=== PATIENT | male | born 1960 | race Caucasian/White ===

== ENCOUNTER 2021-03-06 17:15 | Inpatient (IN) | payer OTHER ==
[2021-03-06] MEDS ORDERED: MENTHOL/PHENOL 1 EACH UD MM PRN (19:21)
[2021-03-06] MEDS ORDERED: MAGNESIUM CITRATE 300 ML BOTTLE PO PRN (19:21)
[2021-03-06] MEDS ORDERED: MAG HYDROX/AL HYDROX/SIMETH 30 ML UNIT-DOSE CUP PO PRN (19:21)
[2021-03-06] MEDS ORDERED: BISMUTH SUBSALICYLATE 524 MG/30 ML PO PRN (19:21)
[2021-03-06] MEDS ORDERED: ONDANSETRON *ODT* 4 MG TABLET SL PRN (19:21)
[2021-03-06] MEDS ORDERED: ACETAMINOPHEN 325 MG TABLET (FP) PO PRN ×2 (19:21)
[2021-03-06] MEDS ORDERED: MAGNESIUM HYDROX 2400MG/30ML ORAL SUSPENSION 30 ML CUP PO PRN (19:21)
[2021-03-06] MEDS ORDERED: IBUPROFEN 400 MG TABLET (FP) PO PRN (19:21)
[2021-03-06] MEDS ORDERED: cloNIDine HCL 0.1 MG TABLET PO PRN (19:21)
[2021-03-06] MEDS ORDERED: methaDONE HCL 10 MG TABLET (FOR DETOX USE ONLY) PO ONE (19:21)
[2021-03-06 20:13] VITALS: BMI 27.9
[2021-03-06] MEDS: THIAMINE HCL 100 MG TABLET (FP) PO SCH (22:14)
[2021-03-06] MEDS: QUEtiapine FUMARATE 50 MG TABLET PO PRN (22:14)
[2021-03-06] MEDS: hydrOXYzine PAMOATE 25 MG CAPSULE (FP) PO SCH (22:15)
[2021-03-06] MEDS: MELATONIN 5 MG TABLETS PO SCH (22:15)
[2021-03-07] MEDS: hydrOXYzine PAMOATE 25 MG CAPSULE (FP) PO SCH ×5 (05:23→22:08)
[2021-03-07] MEDS ORDERED: methaDONE HCL 10 MG TABLET (FOR DETOX USE ONLY) ONE (09:14)
[2021-03-07] MEDS: PRENATAL VITAMINS W/ FOLIC ACID TABLET (FP) PO SCH (10:12)
[2021-03-07] MEDS: PANTOPRAZOLE 40 MG TABLET PO SCH (10:12)
[2021-03-07] MEDS: TAMSULOSIN HCL 0.4 MG CAP PO SCH (10:13)
[2021-03-07] MEDS: NICOTINE 10 MG CARTRIDGE (INHALER) IH PRN ×2 (10:14→17:53)
[2021-03-07 12:14] LABS: HEMATOCRIT 39.9 % (35.4-49); HEMOGLOBIN 13.2 GM/dL (11.7-16.9); MCH 29.5 pg (25.7-33.7); MEAN CELL VOLUME 89.6 fl (80-96); MEAN PLT VOLUME 7.7 fl (7.5-11.1); PLATELET COUNT 348 10^3/uL (134-434); RBC 4.46 M/mm3 (4.00-5.60); RDW 13.6 % (11.9-15.9); WHITE BLOOD COUNT 9.5 K/mm3 (4.0-10.0)
[2021-03-07 12:18] LABS: ALBUMIN 3.1 g/dl (3.4-5.0)
[2021-03-07 12:21] LABS: CREATININE 1.1 mg/dL (0.55-1.3)
[2021-03-07 12:23] LABS: BILIRUBIN,TOTAL 0.5 mg/dL (0.2-1); TOT PROT 6.4 g/dl (6.4-8.2)
[2021-03-07] MEDS: DOCUSATE SODIUM 100 MG CAPSULE (FP) PO SCH ×2 (14:21→22:08)
[2021-03-07] MEDS: THIAMINE HCL 100 MG TABLET (FP) PO SCH (22:08)
[2021-03-07] MEDS: QUEtiapine FUMARATE 50 MG TABLET PO PRN (22:08)
[2021-03-07] MEDS: MELATONIN 5 MG TABLETS PO SCH (22:09)
[2021-03-08] MEDS: DOCUSATE SODIUM 100 MG CAPSULE (FP) PO SCH ×3 (05:11→22:08)
[2021-03-08] MEDS: hydrOXYzine PAMOATE 25 MG CAPSULE (FP) PO SCH ×5 (05:11→22:08)
[2021-03-08] MEDS ORDERED: methaDONE HCL 10 MG TABLET (FOR DETOX USE ONLY) PO ONE (10:00)
[2021-03-08] MEDS: PRENATAL VITAMINS W/ FOLIC ACID TABLET (FP) PO SCH (10:06)
[2021-03-08] MEDS: PANTOPRAZOLE 40 MG TABLET PO SCH (10:07)
[2021-03-08] MEDS: TAMSULOSIN HCL 0.4 MG CAP PO SCH (10:07)
[2021-03-08] MEDS: METHOCARBAMOL 500 MG TABLET PO PRN ×2 (12:04→18:10)
[2021-03-08] MEDS: NICOTINE 10 MG CARTRIDGE (INHALER) IH PRN (13:15)
[2021-03-08] MEDS: THIAMINE HCL 100 MG TABLET (FP) PO SCH (22:08)
[2021-03-08] MEDS: QUEtiapine FUMARATE 50 MG TABLET PO PRN (22:11)
[2021-03-09] MEDS: MELATONIN 5 MG TABLETS PO SCH ×2 (01:04→21:56)
[2021-03-09] MEDS: DOCUSATE SODIUM 100 MG CAPSULE (FP) PO SCH ×3 (06:18→21:56)
[2021-03-09] MEDS: hydrOXYzine PAMOATE 25 MG CAPSULE (FP) PO SCH ×5 (06:19→21:56)
[2021-03-09] MEDS ORDERED: methaDONE HCL 10 MG TABLET (FOR DETOX USE ONLY) ONE (09:39)
[2021-03-09] MEDS: PANTOPRAZOLE 40 MG TABLET PO SCH (10:04)
[2021-03-09] MEDS: TAMSULOSIN HCL 0.4 MG CAP PO SCH (10:04)
[2021-03-09] MEDS: PRENATAL VITAMINS W/ FOLIC ACID TABLET (FP) PO SCH (10:04)
[2021-03-09] MEDS: NICOTINE 10 MG CARTRIDGE (INHALER) IH PRN (10:07)
[2021-03-09] MEDS: QUEtiapine FUMARATE 50 MG TABLET PO PRN (21:56)
[2021-03-09] MEDS: THIAMINE HCL 100 MG TABLET (FP) PO SCH (21:56)
[2021-03-10] MEDS: hydrOXYzine PAMOATE 25 MG CAPSULE (FP) PO SCH ×2 (05:24→09:20)
[2021-03-10] MEDS: DOCUSATE SODIUM 100 MG CAPSULE (FP) PO SCH (05:24)
[2021-03-10] MEDS: PANTOPRAZOLE 40 MG TABLET PO SCH (09:18)
[2021-03-10] MEDS: TAMSULOSIN HCL 0.4 MG CAP PO SCH (09:18)
[2021-03-10] MEDS: PRENATAL VITAMINS W/ FOLIC ACID TABLET (FP) PO SCH (09:20)
[2021-03-10 09:22] VITALS: BP 152/86; PULSE 80; TEMP 98.6
[2021-03-10] MEDS ORDERED: methaDONE HCL 10 MG TABLET (FOR DETOX USE ONLY) PO ONE (10:00)
== END 2021-03-10 09:45 | disposition home or self-care (01) | DRG 773 ==
LOC: YASAS 17:15 → Y6N 19:44
PROVIDERS: ADMIT Allergy & Immunology; ATTEND Allergy & Immunology
PROC: HZ2ZZZZ Detoxification Services for Substance Abuse Treatment (ICD-10-PCS; principal; 2021-03-06)
DX: F11.23 Opioid dependence with withdrawal (principal); F17.210 Nicotine dependence, cigarettes, uncomplicated; N40.0 Benign prostatic hyperplasia without lower urinary tract symptoms; Z87.11 Personal history of peptic ulcer disease; Z88.6 Allergy status to analgesic agent
CPT/HCPCS: 36415; 80053; 85027; 86780; 93005; 93010; C9803; J0735; U0003; U0005